=== PATIENT | female | born 1985 | race Caucasian/White ===

== ENCOUNTER 2018-04-06 12:58 | Emergency (ER) | payer OTHER ==
[2018-04-06 13:23] VITALS: O2SAT 100
[2018-04-06] MEDS ORDERED: Sodium Chloride 0.9% 1,000 ML IV ONE (14:03)
--- NOTE | 2018-04-06 15:24 | C.PDOC ---
History Of Present Illness 32 y/o female comes in to ED complaining of abdominal pain for 2 and a half weeks. Patient states she has some constipation and took laxative, and had bowel movement with streaks of blood. Patient reports taking enema at home. Also complains of some abdominal cramping and now shes having some diarrhea and nausea. Patient denies any vomiting, fever, chills, or any other complaints. Time Seen by Provider: 04/06/18 13:51 Chief Complaint (Nursing): Abdominal Pain History Per: Patient History/Exam Limitations: no limitations Onset/Duration Of Symptoms: Days Current Symptoms Are (Timing): Still Present Past Medical History Reviewed: Historical Data, Nursing Documentation, Vital Signs Vital Signs: Last Vital Signs Temp 98.9 F 04/06/18 13:16 Pulse 99 H 04/06/18 13:16 Resp 18 04/06/18 13:16 BP 113/79 04/06/18 13:16 Pulse Ox 100 04/06/18 13:16 Family History: States: No Known Family Hx - Social History Hx Alcohol Use: Yes Hx Substance Use: Yes - Immunization History Hx Tetanus Toxoid Vaccination: No Hx Influenza Vaccination: No Hx Pneumococcal Vaccination: No Review Of Systems Except As Marked, All Systems Reviewed And Found Negative. Gastrointestinal: Positive for: Diarrhea, Constipation, Other (Abdominal discomfort) Physical Exam - Physical Exam Appears: Non-toxic, No Acute Distress Skin: Normal Color, Warm, Dry Head: Atraumatic, Normacephalic Eye(s): bilateral: Normal Inspection, PERRL, EOMI Oral Mucosa: Moist Neck: Supple Chest: Symmetrical Cardiovascular: Rhythm Regular, No Murmur Respiratory: Normal Breath Sounds, No Rales, No Rhonchi, No Wheezing Gastrointestinal/Abdominal: Tenderness (diffuse), No Guarding, No Rebound Rectal: Normal Exam, Rectal Tone, Heme Positive (brown stool ), Hemorrhoids Extremity: Bilateral: Atraumatic, Normal Color And Temperature, Normal ROM Neurological/Psych: Oriented x3, Normal Speech ED Course And Treatment - Laboratory Results Result Diagrams: 04/06/18 15:11 04/06/18 15:11 O2 Sat by Pulse Oximetry: 100 (RA) Pulse Ox Interpretation: Normal - CT Scan/US Abd/Pel CT Other Rad Studies (CT/US): Read By Radiologist, Radiology Report Reviewed CT/US Interpretation: FINDINGS: LOWER THORAX: No visible consolidation, pleural effusion, or pneumothorax. LIVER: Mild periportal edema, nonspecific. Otherwise unremarkable. GALLBLADDER AND BILE DUCTS: Unremarkable. PANCREAS: Unremarkable. SPLEEN: Unremarkable. ADRENALS: Unremarkable. KIDNEYS AND URETERS: The kidneys enhance symmetrically. No hydronephrosis or obstructing calculus identified. VASCULATURE: No aortic aneurysm. No atherosclerotic calcification or mural plaque present. BOWEL: Stomach is nondistended. Lack of oral contrast limits evaluation for bowel pathology. Bowel loops appear within normal limits of caliber without evidence of obstruction. Moderate to severe diffuse constipation. APPENDIX: The appendix appears within normal limits of caliber. No secondary signs of acute appendicitis. PERITONEUM: Moderate pelvic free fluid. No definite free air. LYMPH NODES: No bulky adenopathy identified. BLADDER: Unremarkable. REPRODUCTIVE: The uterus is present. Heterogeneous enhancing soft tissue mass is evident within the pelvis which appears contiguous with the uterine dome. Question pedunculated fibroid versus right adnexal mass. 13 mm left ovarian cyst. BONES: No acute osseous abnormality is detected. OTHER FINDINGS: None. IMPRESSION: Heterogeneous enhancing soft tissue mass is evident within the pelvis which appears contiguous with the uterine dome. Question possibility of pedunculated fibroid versus right adnexal mass. Recommend pelvic ultrasound in order to better assess for the presence of the right ovary. 13 mm probable left ovarian cyst. Mild periportal edema, nonspecific. Moderate to severe diffuse constipation. Moderate pelvic free fluid. Pelvic US Other Rad Studies (CT/US): Read By Radiologist, Radiology Report Reviewed CT/US Interpretation: IMPRESSION: 1. Questionable fundal pedunculated uterine fibroid. 2. Tiny right ovarian calcification. 3. Bilateral adnexa free fluid. 4. Free fluid within the pelvic cul-de-sac. Medical Decision Making Medical Decision Making: Impression: Abdominal pain Plan: --Abd/Pel CT --Bloodwork --Urinalysis --IV fluids 1L --Pelvis US 2012 - patient is resting comfortably, no pain, advised rectal exam demonstrated blood however patient has hemorrhoid. Offered hospital admission which patient refused. Will discharge patient home and advised immediate follow up with gi and forestry pilot. Copy of reports given to patient. Disposition - Disposition Referrals: Bob Austin MD [Staff Provider] - Lauryn Bright DO [Staff Provider] - Disposition: HOME/ ROUTINE Disposition Time: 20:15 Condition: STABLE Additional Instructions: follow up immediately with gi and forestry pilot call to make an appointment take medications as prescribed you were offered hospital admission you are welcome to return to hospital at anytime you understand your findings today take medications as prescribed. Prescriptions: Ondansetron ODT [Zofran ODT] 4 mg PO TID PRN #12 odt PRN Reason: Nausea/Vomiting Pantoprazole Sodium [Protonix] 40 mg PO DAILY #12 ect Polyethylene Glycol 3350 [Miralax] 17 g PO DAILY PRN #10 packet PRN Reason: Constipation Instructions: Uterine Fibroids, Constipation in Adults, Gastrointestinal Bleeding (DC) Forms: General Discharge Instructions, [facility] (Setswana), Work Excuse - Clinical Impression Clinical Impression: Constipation, Fibroid, Encounter for Hemoccult screening, Blood in stool - Scribe Statement The provider has reviewed the documentation as recorded by the Katie Pacheco Provider Attestation: All medical record entries made by the Katie were at my direction and personally dictated by me. I have reviewed the chart and agree that the record accurately reflects my personal performance of the history, physical exam, medical decision making, and the department course for this patient. I have also personally directed, reviewed, and agree with the discharge instructions and disposition.
[2018-04-06 15:25] LABS: SQUAMOUS EPITHIAL 1 /hpf (0-5); URINE BILIRUBIN NEGATIVE (NEGATIVE); URINE BLOOD NEGATIVE (NEGATIVE); URINE CLARITY Clear (Clear); URINE COLOR Yellow (YELLOW); URINE GLUCOSE (UA) NORMAL (Normal); URINE LEUKOCYTE ESTERASE NEG Leu/uL (Negative); URINE PROTEIN NEGATIVE (NEGATIVE); URINE UROBILINOGEN NORMAL mg/dL (0.2-1.0)
[2018-04-06 15:28] LABS: BASO % 0.9 % (0.0-2.0); EOS # 0.1 K/uL (0.0-0.7); EOS % 1.8 % (0.0-4.0); LYMPH # 1.4 K/uL (1.0-4.3); LYMPH % 30.1 % (20.0-40.0); MEAN CORPUSCULAR HEMOGLOBIN 27.7 pg (27.0-31.0); MEAN CORPUSCULAR HGB CONC 32.3 g/dL (33.0-37.0); MEAN PLATELET VOLUME 9.8 fL (7.2-11.7); MONO # 0.5 K/uL (0.0-0.8); MONO % 10.7 % (0.0-10.0); NEUT # 2.6 K/uL (1.8-7.0); NEUT % 56.5 % (50.0-75.0); NRBC % 0.1 % (0.0-2.0); RBC 3.85 Mil/uL (3.80-5.20); WHITE BLOOD COUNT 4.6 K/uL (4.8-10.8)
[2018-04-06 15:30] LABS: HEMOGLOBIN 10.7 g/dL (11.0-16.0); MEAN CELL VOLUME 85.8 fL (81.0-99.0)
[2018-04-06 15:43] LABS: ALB/GLOB RATIO 1.4 (1.0-2.1); ALBUMIN 3.9 g/dL (3.5-5.0); ALT/SGPT 19 U/L (9-52); AST/SGOT 18 U/L (14-36); BLOOD UREA NITROGEN 10 mg/dL (7-17); GFR NON-AFRICAN AMERICAN > 60; LIPASE 39 U/L (23-300)
[2018-04-06] MEDS ORDERED: Iodixanol 320 MG/ML 100 ML BOTTLE IV ONE (15:55)
--- NOTE | 2018-04-06 16:50 | CT ---
Date of service: 04/06/2018 PROCEDURE: CT Abdomen and Pelvis with contrast HISTORY: abd pain COMPARISON: None available. TECHNIQUE: Contrast dose: 100 mL Visipaque 320 IV Radiation dose: Total exam DLP = 300.68 mGy-cm. This CT exam was performed using one or more of the following dose reduction techniques: Automated exposure control, adjustment of the mA and/or kV according to patient size, and/or use of iterative reconstruction technique. FINDINGS: LOWER THORAX: No visible consolidation, pleural effusion, or pneumothorax. LIVER: Mild periportal edema, nonspecific. Otherwise unremarkable. GALLBLADDER AND BILE DUCTS: Unremarkable. PANCREAS: Unremarkable. SPLEEN: Unremarkable. ADRENALS: Unremarkable. KIDNEYS AND URETERS: The kidneys enhance symmetrically. No hydronephrosis or obstructing calculus identified. VASCULATURE: No aortic aneurysm. No atherosclerotic calcification or mural plaque present. BOWEL: Stomach is nondistended. Lack of oral contrast limits evaluation for bowel pathology. Bowel loops appear within normal limits of caliber without evidence of obstruction. Moderate to severe diffuse constipation. APPENDIX: The appendix appears within normal limits of caliber. No secondary signs of acute appendicitis. PERITONEUM: Moderate pelvic free fluid. No definite free air. LYMPH NODES: No bulky adenopathy identified. BLADDER: Unremarkable. REPRODUCTIVE: The uterus is present. Heterogeneous enhancing soft tissue mass is evident within the pelvis which appears contiguous with the uterine dome. Question pedunculated fibroid versus right adnexal mass. 13 mm left ovarian cyst. BONES: No acute osseous abnormality is detected. OTHER FINDINGS: None. IMPRESSION: Heterogeneous enhancing soft tissue mass is evident within the pelvis which appears contiguous with the uterine dome. Question possibility of pedunculated fibroid versus right adnexal mass. Recommend pelvic ultrasound in order to better assess for the presence of the right ovary. 13 mm probable left ovarian cyst. Mild periportal edema, nonspecific. Moderate to severe diffuse constipation. Moderate pelvic free fluid.
[2018-04-06 19:07] VITALS: RESP 18
[2018-04-06 20:32] VITALS: BP 107/69; PULSE 70; TEMP 98.5
--- NOTE | 2018-04-07 12:18 | US ---
Date of service: 04/06/2018 HISTORY: abn. ct scan finding COMPARISON: CT abdomen and pelvis 03/29/2018. TECHNIQUE: Transabdominal and transvaginal pelvic ultrasound was performed. FINDINGS: UTERUS: Measures 6.8 x 3.7 x 4.7 cm. There is a 4.7 x 3.9 x 6.5 cm subserosal fundal fibroid. No fibroid or other mass lesion seen. ENDOMETRIUM: Measures 9.0 mm in diameter. Unremarkable. CERVIX: No cervical abnormality identified. RIGHT OVARY: Measures 3.0 x 1.4 x 3.5 cm. No solid mass. Normal flow. There is nonspecific 3 mm calcification LEFT OVARY: Measures 4.0 x 5.6 x 2.9 cm. No solid mass. Normal flow. There is a 1.8 x 1.2 x 2.0 cm simple cyst. FREE FLUID: There is small amount of free fluid in bilateral adnexa. OTHER FINDINGS: None. IMPRESSION: Suspect 4.7 x 3.9 x 6.5 cm subserosal fundal fibroid. A preliminary report was provided by [facility].
== END 2018-04-06 20:33 | disposition home or self-care (01) ==
LOC: C.ER 12:58
DX: K59.00 Constipation, unspecified (principal); D25.9 Leiomyoma of uterus, unspecified; K92.1 Melena; Z12.11 Encounter for screening for malignant neoplasm of colon
CPT/HCPCS: 74177; 76830; 76856; 80053; 81001; 83690; 85025; 96361; 96374; 99285; C9113; J7030; Q9967